=== PATIENT | male | born 1965 | race Caucasian/White ===

== ENCOUNTER 2020-03-20 19:40 | Emergency (ER) | payer OTHER ==
[~2020-03-20] VITALS: Ht 175.3 cm; Wt 97.5 kg
[2020-03-20] MEDS ORDERED: BENADRYL25 MG PO (20:12)
[2020-03-20] MEDS ORDERED: Prednisone50 MG PO (20:12)
[2020-03-20] MEDS ORDERED: EPIPEN 2-P0.3 MG/0.1 IM (20:12)
== END 2020-03-20 21:34 | disposition home or self-care (01) ==
LOC: ER 19:40
DX: T78.40XA Allergy, unspecified, initial encounter (principal); L29.9 Pruritus, unspecified; R06.02 Shortness of breath; R00.2 Palpitations; Z88.0 Allergy status to penicillin
CPT/HCPCS: 99283